=== PATIENT | female | born 1960 | race African-American/Black ===

== ENCOUNTER 2019-09-24 11:48 | Outpatient (CLI) | payer OTHER ==
--- NOTE | 2019-09-24 12:56 | RAD ---
4 VIEWS RIGHT KNEE: Date: 09/24/2019 HISTORY: Right knee pain for 2 weeks. FINDINGS: Four views of the right knee show no evidence of acute fracture or dislocation. Mild tricompartmental joint space narrowing and osteophyte formation is seen. No knee effusion is seen. IMPRESSION: Mild right knee osteoarthritis. POS: C
== END 2019-09-24 11:49 | disposition home or self-care (01) ==
LOC: MADRAD 11:48
PROVIDERS: ATTEND Family Medicine
DX: M25.561 Pain in right knee (principal); M17.11 Unilateral primary osteoarthritis, right knee

== ENCOUNTER 2020-08-11 08:54 | Outpatient (CLI) | payer OTHER ==
[2020-08-11 09:17] LABS: #Eosinphils 0.1 thou/uL (0.0-0.7); #Lymphocytes 1.7 thou/uL (1.20-3.40); #Monocytes 0.2 thou/uL (0.11-0.59); %Eosinophils 2.7 % (0.0-10.0); %Lymphocytes 33.6 % (21.0-51.0); %Monocytes 4.7 % (0.0-10.0); Hemoglobin 11.8 g/dL (12.0-16.0); Mean Corpuscular HGB CONC 31.7 g/dL (32.0-36.0); Mean Corpuscular Volume 85.2 fL (78.0-98.0); Mean Platelet Volume 7.2 fL (7.4-10.4); Platelet Count 234 thou/uL (130-400); Red Blood Cell (RBC) Count 4.38 mill/uL (4.20-5.40); White Blood Cell (WBC) Count 5.1 thou/uL (4.8-10.8)
[2020-08-11 09:32] LABS: Anion Gap 12 mmol/L (10-20); BUN (Urea Nitrogen) 17 mg/dL (9.8-20.1); Calc. Creatinine Clearance 0 mL/min (70-130); Carbon Dioxide 28 mmol/L (23-31); Chloride 105 mmol/L (98-107); Potassium 3.9 mmol/L (3.5-5.1); Sodium 141 mmol/L (136-145)
[2020-08-11 09:33] LABS: ALT (SGPT) 15 U/L (8-55); AST (SGOT) 15 U/L (5-34); Albumin 4.1 g/dL (3.4-4.8); Alkaline Phosphatase 48 U/L (40-110); Bilirubin, Total 0.4 mg/dL (0.2-1.2); Calcium 9.5 mg/dL (7.8-10.44); Cardiac Risk 2.9 (Less than 4.5); Cholesterol 123 mg/dl (< 200 Desired); Globulin 2.9 g/dL (2.4-3.5); Glucose 100 mg/dL (80-115); HDL Cholesterol 42 mg/dL (>60 Neg Risk); LDL Cholesterol, Calculated 69 mg/dL; Triglycerides 62 mg/dL (Less than 150)
[2020-08-11 16:42] LABS: HIV (1/2) Antibody/Antigen Non-Reactive (NonReactive); HIV 1/2 INDEX 0.12 S/CO (<1.00); Vitamin D, 25 Hydroxy 6.7 ng/ml (> 30.0)
== END 2020-08-11 08:55 | disposition home or self-care (01) ==
LOC: MADLAB 08:54
PROVIDERS: ATTEND Family Medicine
DX: Z00.00 Encounter for general adult medical examination without abnormal findings (principal)
CPT/HCPCS: 36415; 80053; 80061; 82306; 83036; 84443; 85025; 87389

== ENCOUNTER 2021-12-25 16:11 | Outpatient (CLI) | payer BC | END 2021-12-25 16:12 | disposition home or self-care (01) | LOC: MADRAD 16:11 | PROVIDERS: ATTEND Registered Nurse | DX: M16.12 Unilateral primary osteoarthritis, left hip (principal); W19.XXXA Unspecified fall, initial encounter; M47.816 Spondylosis without myelopathy or radiculopathy, lumbar region | CPT/HCPCS: 72100 ==

== ENCOUNTER 2022-02-22 16:34 | Emergency (ER) | payer BC ==
[~2022-02-22 16:34] MED LIST: Iopamidol 370 76% 100 ML VIAL ONE
[2022-02-22 18:38] LABS: #Basophils 0.1 thou/uL (0.0-0.2); #Eosinphils 0.2 thou/uL (0.0-0.7); #Lymphocytes 1.6 thou/uL (1.20-3.40); #Monocytes 0.4 thou/uL (0.11-0.59); #Neutrophils 2.8 thou/uL (1.40-6.50); %Basophils 1.8 % (0.0-1.0); %Eosinophils 3.5 % (0.0-10.0); %Lymphocytes 32.6 % (21.0-51.0); %Monocytes 7.6 % (0.0-10.0); %Neutrophils 54.6 % (42.0-75.0); Hemoglobin 11.1 g/dL (12.0-16.0); Mean Corpuscular HGB CONC 30.6 g/dL (32.0-36.0); Mean Corpuscular Hemoglobin 26.1 pg (27.0-31.0); Mean Corpuscular Volume 85.1 fL (78.0-98.0); Mean Platelet Volume 9.8 fL (7.4-10.4); Platelet Count 205 thou/uL (130-400); Red Blood Cell (RBC) Count 4.26 mill/uL (4.20-5.40)
[2022-02-22 18:50] LABS: ALT (SGPT) 12 U/L (8-55); AST (SGOT) 16 U/L (5-34); Alkaline Phosphatase 50 U/L (40-110); Anion Gap 15 mmol/L (10-20); BUN (Urea Nitrogen) 15 mg/dL (9.8-20.1); Bilirubin, Total 0.4 mg/dL (0.2-1.2); Calc. Creatinine Clearance 0 mL/min (70-130); Calcium 9.7 mg/dL (7.8-10.44); Carbon Dioxide 28 mmol/L (23-31); Chloride 105 mmol/L (98-107); Estimated GFR 70; Globulin 2.6 g/dL (2.4-3.5); Glucose 100 mg/dL (80-115); Lipase 18 U/L (8-78); Potassium 4.2 mmol/L (3.5-5.1); Protein, Total 6.6 g/dL (5.8-8.1); Sodium 144 mmol/L (136-145)
[2022-02-22 18:51] LABS: Bilirubin Negative (Negative); Blood, Urine Small (Negative); Glucose, Urine (Dipstick) Negative (Negative); Ketone, Urine Negative (Negative); Leukocyte Negative (Negative); Nitrite Negative (Negative); Protein, Urine (Dipstick) Negative (Neg-Trace); Specific Gravity, Urine 1.025 (1.005-1.030); Urobilinogen 0.2 mg/dL (Less than 2); pH, Urine 5.5 (5.0-9.0)
[2022-02-22 18:52] LABS: Clarity Hazy (Clear)
[2022-02-22 18:57] LABS: Nucleated RBC 0 % (0)
[2022-02-22 19:01] LABS: Bacteria/HPF Rare-Few HPF (None Seen); Mucous/LPF 2+ LPF (<2+); WBC/HPF None Seen HPF (0-3)
[2022-02-22] MEDS ORDERED: Pantoprazole 40 MG VIAL ONE (20:49)
== END 2022-02-22 21:05 | disposition home or self-care (01) ==
LOC: MADERS 16:34
DX: R10.12 Left upper quadrant pain (principal); I11.0 Hypertensive heart disease with heart failure; I50.9 Heart failure, unspecified; E78.00 Pure hypercholesterolemia, unspecified; Z79.82 Long term (current) use of aspirin; Z79.899 Other long term (current) drug therapy
CPT/HCPCS: 71046; 74177; 80053; 81003; 81015; 83605; 83690; 84484; 85025; 93005; 94760; 96374; C9113; Q9967

== ENCOUNTER 2025-03-07 08:25 | Emergency (ER) | payer OTHER ==
[2025-03-07] MEDS ORDERED: Iopamidol 370 76% 100 ML VIAL ONE (09:00)
[2025-03-07] MEDS ORDERED: Acetaminophen 500 MG TAB ONE (09:30)
[2025-03-07 09:31] LABS: #Basophils 0.1 thou/uL (0.0-0.2); #Eosinophils 0.1 thou/uL (0.0-0.7); #Lymphocytes 1.4 thou/uL (1.20-3.40); #Monocytes 0.3 thou/uL (0.11-0.59); #Neutrophils 2.8 thou/uL (1.40-6.50); %Basophils 1.1 % (0.0-1.0); %Eosinophils 2.5 % (0.0-10.0); %Lymphocytes 30.3 % (21.0-51.0); %Monocytes 6.2 % (0.0-10.0); %Neutrophils 59.9 % (42.0-75.0); Hematocrit 38.3 % (36.0-47.0); Hemoglobin 11.8 g/dL (12.0-16.0); Mean Corpuscular Hemoglobin 26.1 pg (27.0-31.0); Mean Corpuscular Volume 84.9 fl (78.0-98.0); Platelet Count 272 10x3/uL (130-400); Red Blood Cell (RBC) Count 4.51 mill/uL (4.20-5.40); White Blood Cell (WBC) Count 4.7 10x3/uL (4.8-10.8)
[2025-03-07 09:47] LABS: ALT (SGPT) 9 U/L (Less than 34); AST (SGOT) 14 U/L (11-34); Albumin 4.0 g/dL (3.1-4.5); Alkaline Phosphatase 52 U/L (40-110); Anion Gap 18 mmol/L (10-20); BUN (Urea Nitrogen) 16 mg/dL (9.8-20.1); Bilirubin, Total 0.6 mg/dL (0.3-1.2); Calc. Creatinine Clearance 0 mL/min (70-130); Calcium 10.3 mg/dL (7.8-10.44); Carbon Dioxide 23 mmol/L (23-31); Chloride 104 mmol/L (98-107); Globulin 3.8 g/dL (2.4-3.5); Glucose 96 mg/dL (80-115); Potassium 4.2 mmol/L (3.5-5.1); Sodium 141 mmol/L (136-145)
== END 2025-03-07 10:58 | disposition home or self-care (01) ==
LOC: MADERS 08:25
DX: M54.2 Cervicalgia (principal); K12.2 Cellulitis and abscess of mouth; I11.0 Hypertensive heart disease with heart failure; I50.9 Heart failure, unspecified; E78.00 Pure hypercholesterolemia, unspecified; Z79.82 Long term (current) use of aspirin; Z79.899 Other long term (current) drug therapy
CPT/HCPCS: 70491; 71046; 80053; 85025; J2919; 96374; Q9967